=== PATIENT | male | born 1980 | race Caucasian/White ===

== ENCOUNTER 2017-07-11 02:13 | Emergency (ER) | payer OTHER ==
--- NOTE | 2017-07-11 02:15 | ER Report ---
History and Physical Time Seen By MD: 02:15 (PREET MURPHY MD) HPI/ROS CHIEF COMPLAINT: emergency detainment HISTORY OF PRESENT ILLNESS: This is a 37 year old male. [facility] He was emergency detained. He has been going through a lot of stress with family situations and financial. Reported to SO by family that he smashed out a window in his trailer. Was holding a piece of glass against his wrist threatening to hurt himself. Family had reported to the SO that he had made suicidal comments. The patient left the home on foot. It was reported that he tried to start his motorcycle, but then left of foot. The patient states that he was leaving because he was angry, but not suicidal. Was later approached by law enforcement after this. Has some shallow cuts on is forearm which he states happened when he broke the window. Denies current suicidal ideation. Has been drinking tonight, does not usually drink. He is upset about being here, and states that he cannot afford to miss work, he will be fired, and that they do not care if he is in the hospital or not. (PREET MURPHY MD) Allergies: Coded Allergies: No Known Drug Allergies (Unverified , 07/11/17) Home Meds Discontinued Reported Medications Ranitidine Hcl (ZANTAC) 150 Mg Tablet, 150 MG PO QDAY, TAB 07/11/17 Reviewed Nurses Notes: Yes (PRETE MURPHY MD) Constitutional Vital Sign - Last 24 Hours 07/11/17 07/11/17 02:15 08:05 Temp 98.3 Pulse 100 91 Resp 16 B/P (MAP) 159/99 151/92 (111) Pulse Ox 94 O2 Delivery Room Air (MADELINE ERICKSON MD) Physical Exam General Appearance: Alert, somewhat anxious, cooperative initially. Eyes: Pupils equal and round, reactive to light, extraocular movements are intact, no injection. ENT: Normal oral mucosa. Moist mucous membranes. Tympanic membranes are normal. Neck: Neck is supple and non tender. Respiratory: Chest is non tender, lungs are clear to auscultation. Cardiac: regular rate and rhythm Gastrointestinal: Abdomen is soft and non tender, no masses, bowel sounds normal. Musculoskeletal: Extremities have full range of motion. Skin: No rashes. Has shallow lacerations and abrasions on his forearms. DIFFERENTIAL DIAGNOSIS: After history and physical exam differential diagnosis was considered for a patient with self-injurious behavior tonight, report of suicidal ideation although he is not currently expressing suicidal ideation, and with alcohol intoxication ([facility]) Medical Decision Making Data Points Result Diagram: 07/11/17 0224 07/11/17 0224 Laboratory Hematology Test 07/11/17 02:10 07/11/17 02:24 Urine Color Straw Urine Clarity Clear Urine pH 5.0 pH (4.8-9.5) Urine Specific Doole 1.004 Urine Protein Negative mg/dL (NEGATIVE) Urine Glucose (UA) Negative mg/dL (NEGATIVE) Urine Ketones Negative mg/dL (NEGATIVE) Urine Blood Negative (NEGATIVE) Urine Nitrite Negative (NEGATIVE) Urine Bilirubin Negative (NEGATIVE) Urine Urobilinogen Negative mg/dL (0.2-1.9) Urine Leukocyte Esterase Negative (NEGATIVE) Urine RBC <1 /HPF (0-2/HPF) Urine WBC None /HPF (0-5/HPF) Urine Squamous Epithelial Cells Few /LPF (</=FEW) Urine Bacteria Negative /HPF (NONE-FEW) Urine Mucus None /HPF (NONE-FEW) Urine Opiates Screen Negative Urine Barbiturates Screen Negative Ur Tricyclic Antidepressants Screen Negative Urine Phencyclidine Screen Negative Urine Amphetamines Screen Negative Urine Benzodiazepines Screen Negative Urine Cocaine Screen Negative Urine Cannabinoids Screen Negative Red Blood Count 5.42 M/uL (4.00-5.60) Mean Corpuscular Volume 89.7 fL (80.0-96.0) Mean Corpuscular Hemoglobin 31.7 pg (26.0-33.0) Mean Corpuscular Hemoglobin Concent 35.3 g/dL (32.0-36.0) Red Cell Distribution Width 12.7 % (11.5-14.5) Mean Platelet Volume 10.1 fL (7.2-11.1) Neutrophils (%) (Auto) 62.6 % (39.4-72.5) Lymphocytes (%) (Auto) 26.3 % (17.6-49.6) Monocytes (%) (Auto) 8.6 % (4.1-12.4) Eosinophils (%) (Auto) 1.7 % (0.4-6.7) Basophils (%) (Auto) 0.8 % (0.3-1.4) Nucleated RBC Relative Count (auto) 0.1 /100WBC Neutrophils # (Auto) 7.4 K/uL (2.0-7.4) Lymphocytes # (Auto) 3.1 K/uL (1.3-3.6) Monocytes # (Auto) 1.0 K/uL (0.3-1.0) Eosinophils # (Auto) 0.2 K/uL (0.0-0.5) Basophils # (Auto) 0.1 K/uL (0.0-0.1) Nucleated RBC Absolute Count (auto) 0.01 K/uL Sodium Level 146 mmol/L (137-145) Potassium Level 4.0 mmol/L (3.5-5.0) Chloride Level 107 mmol/L (98-107) Carbon Dioxide Level 22 mmol/L (22-30) Blood Urea Nitrogen 13 mg/dl (9-21) Creatinine 1.00 mg/dl (0.66-1.25) Glomerular Filtration Rate Calc > 60.0 Random Glucose 104 mg/dl (75-110) Calcium Level 9.8 mg/dl (8.4-10.2) Magnesium Level 1.9 mg/dl (1.7-2.2) Total Bilirubin 0.3 mg/dl (0.2-1.3) Aspartate Amino Transf (AST/SGOT) 22 U/L (0-35) Alanine Aminotransferase (ALT/SGPT) 42 U/L (0-56) Alkaline Phosphatase 81 U/L (0-126) Total Protein 7.4 gm/dl (6.3-8.2) Albumin 4.4 g/dl (3.5-5.0) Salicylates Level < 10 mg/L Salicylate Last Dose Date unk Acetaminophen Level < 10 ug/ml Serum Alcohol 135 mg/dl Chemistry Test 07/11/17 02:10 07/11/17 02:24 Urine Color Straw Urine Clarity Clear Urine pH 5.0 pH (4.8-9.5) Urine Specific Doole 1.004 Urine Protein Negative mg/dL (NEGATIVE) Urine Glucose (UA) Negative mg/dL (NEGATIVE) Urine Ketones Negative mg/dL (NEGATIVE) Urine Blood Negative (NEGATIVE) Urine Nitrite Negative (NEGATIVE) Urine Bilirubin Negative (NEGATIVE) Urine Urobilinogen Negative mg/dL (0.2-1.9) Urine Leukocyte Esterase Negative (NEGATIVE) Urine RBC <1 /HPF (0-2/HPF) Urine WBC None /HPF (0-5/HPF) Urine Squamous Epithelial Cells Few /LPF (</=FEW) Urine Bacteria Negative /HPF (NONE-FEW) Urine Mucus None /HPF (NONE-FEW) Urine Opiates Screen Negative Urine Barbiturates Screen Negative Ur Tricyclic Antidepressants Screen Negative Urine Phencyclidine Screen Negative Urine Amphetamines Screen Negative Urine Benzodiazepines Screen Negative Urine Cocaine Screen Negative Urine Cannabinoids Screen Negative White Blood Count 11.8 k/uL (4.5-11.0) Red Blood Count 5.42 M/uL (4.00-5.60) Hemoglobin 17.2 g/dL (14.0-18.0) Hematocrit 48.7 % (42.0-52.0) Mean Corpuscular Volume 89.7 fL (80.0-96.0) Mean Corpuscular Hemoglobin 31.7 pg (26.0-33.0) Mean Corpuscular Hemoglobin Concent 35.3 g/dL (32.0-36.0) Red Cell Distribution Width 12.7 % (11.5-14.5) Platelet Count 217 K/uL (150-450) Mean Platelet Volume 10.1 fL (7.2-11.1) Neutrophils (%) (Auto) 62.6 % (39.4-72.5) Lymphocytes (%) (Auto) 26.3 % (17.6-49.6) Monocytes (%) (Auto) 8.6 % (4.1-12.4) Eosinophils (%) (Auto) 1.7 % (0.4-6.7) Basophils (%) (Auto) 0.8 % (0.3-1.4) Nucleated RBC Relative Count (auto) 0.1 /100WBC Neutrophils # (Auto) 7.4 K/uL (2.0-7.4) Lymphocytes # (Auto) 3.1 K/uL (1.3-3.6) Monocytes # (Auto) 1.0 K/uL (0.3-1.0) Eosinophils # (Auto) 0.2 K/uL (0.0-0.5) Basophils # (Auto) 0.1 K/uL (0.0-0.1) Nucleated RBC Absolute Count (auto) 0.01 K/uL Glomerular Filtration Rate Calc > 60.0 Calcium Level 9.8 mg/dl (8.4-10.2) Magnesium Level 1.9 mg/dl (1.7-2.2) Total Bilirubin 0.3 mg/dl (0.2-1.3) Aspartate Amino Transf (AST/SGOT) 22 U/L (0-35) Alanine Aminotransferase (ALT/SGPT) 42 U/L (0-56) Alkaline Phosphatase 81 U/L (0-126) Total Protein 7.4 gm/dl (6.3-8.2) Albumin 4.4 g/dl (3.5-5.0) Salicylates Level < 10 mg/L Salicylate Last Dose Date unk Acetaminophen Level < 10 ug/ml Serum Alcohol 135 mg/dl Toxicology Test 07/11/17 02:10 07/11/17 02:24 Urine Opiates Screen Negative Urine Barbiturates Screen Negative Ur Tricyclic Antidepressants Screen Negative Urine Phencyclidine Screen Negative Urine Amphetamines Screen Negative Urine Benzodiazepines Screen Negative Urine Cocaine Screen Negative Urine Cannabinoids Screen Negative Salicylates Level < 10 mg/L Salicylate Last Dose Date unk Acetaminophen Level < 10 ug/ml Serum Alcohol 135 mg/dl Urinalysis Test 07/11/17 02:10 Urine Color Straw Urine Clarity Clear Urine pH 5.0 pH (4.8-9.5) Urine Specific Doole 1.004 Urine Protein Negative mg/dL (NEGATIVE) Urine Glucose (UA) Negative mg/dL (NEGATIVE) Urine Ketones Negative mg/dL (NEGATIVE) Urine Blood Negative (NEGATIVE) Urine Nitrite Negative (NEGATIVE) Urine Bilirubin Negative (NEGATIVE) Urine Urobilinogen Negative mg/dL (0.2-1.9) Urine Leukocyte Esterase Negative (NEGATIVE) Urine RBC <1 /HPF (0-2/HPF) Urine WBC None /HPF (0-5/HPF) Urine Squamous Epithelial Cells Few /LPF (</=FEW) Urine Bacteria Negative /HPF (NONE-FEW) Urine Mucus None /HPF (NONE-FEW) (MADELINE ERICKSON MD) ED Course/Re-evaluation ED Course Labs show alcohol level of 135. Everything else is negative. I called and talked with Mery Pedroza, and let her know that based on the situation, I was upholding the fdc because of the conflicting information and potential dangerousness involved. He is also getting angry about being detained. After talking to him further he states that he is refusing to be detained because he has done nothing wrong and is not suicidal. Tried to explain to him that the current detainment is based on actions from earlier tonight and that if behavioral health feels that he can be released early, that is up to them, but will wait for their evaluation. He is demanding that they be called to come in now, and I let him know that was not going to happen and they would evaluate later this morning. We let him know that we understand him being upset and do not blame him for that, but that at this time, he is detained and that further evaluation with behavioral health will need to be done. Decision to Disposition Date: July 11, 2017 Decision to Disposition Time: 02:49 (PREET MURPHY MD) ED Course 07/11/2017 7:51:37 am I spoke with Mery Pedroza from behavioral medicine. She states that the patient will be required to come up to the behavioral medicine floor for evaluation. If they determine at that time the patient does not require a prolonged visit he will be discharged from behavioral medicine. At this time we will have crisis come down to have the patient go up to the floor for evaluation. If the patient is uncooperative we will escort him with the police (MADELINE ERICKSON MD) Depart Departure Latest Vital Signs Vital Signs Date Time Temp Pulse Resp B/P (MAP) Pulse Ox O2 Delivery O2 Flow Rate FiO2 07/11/17 08:05 91 151/92 (111) 07/11/17 02:15 98.3 16 94 Room Air (MADELINE ERICKSON MD) Impression: Primary Impression: Self-injurious behavior Additional Impression: Intoxication Condition: Condition Unchanged Disposition: XFER TO [facility] New Scripts No Active Prescriptions or Reported Meds Problem Qualifiers PREET MURPHY MD July 11, 2017 02:15 MADELINE ERICKSON MD July 11, 2017 07:53
[2017-07-11] MEDS ORDERED: RANI-366 PO (02:27)
--- NOTE | 2017-07-11 02:38 | BHS - Psychiatric Evaluation ---
ER - Title 25 MHE Evaluation Title 25 Evaluation Patient Detained By: Law Enforcement Referral Source: law enforcement, family, patient Date Patient Detained: July 11, 2017 Time Patient Detained: : Date Skilled Nursing Expires: July 14, 2017 Time Skilled Nursing Expires: :15 Legal Status: Police Hold: No Legal Status: Residence: [facility] Resident Assessment Data Provided By: Patient, Law Enforcement, Family Member(s) HPI/ROS: This is a 37 year old male. [facility] He was emergency detained. He has been going through a lot of stress with family situations and financial. Reported to SO by family that he smashed out a window in his trailer. Was holding a piece of glass against his wrist threatening to hurt himself. Family had reported to the SO that he had made suicidal comments. The patient left the home on foot. It was reported that he tried to start his motorcycle, but then left of foot. The patient states that he was leaving because he was angry, but not suicidal. Was later approached by law enforcement after this. Has some shallow cuts on is forearm which he states happened when he broke the window. Denies current suicidal ideation. Has been drinking tonight, does not usually drink. He is upset about being here, and states that he cannot afford to miss work, he will be fired, and that they do not care if he is in the hospital or not. Admit due to SI or Attempt: No Suicide Plan: No Plan Alcohol or Drugs Involved: Yes Current Intoxication Info: Had several beers and was intoxicated. States that he usually does not drink Mental Status Exam General Appearance: Cooperative, Polite, Good Interaction Speech: Clear, Normal Rate, Normal Volume, Normal Tone Mood: Other Affect: Anxious, Agitated Thought Process: Organized, Goal Directed Thought Content: No Suicidal Ideation, No Homicidal Ideation Sensorium: Other (intoxicated) Cognition: Alert & Oriented-Person, Alert & Oriented-Place, Alert & Oriented- Time, Jtbir-Xneyamli-Prluvlxhh Memory: Immediate, Recent, Remote Insight Judgment: Fair Sleep: Normal Current Risk & History Current Dangerous Risk Assessm: Self-Injurious Behaviors Past Dangerous Risk Assessm: Other Previous Suicide Attempt: No Previous Attempt Previous Psychiatric Illness: No Previous Psychiatric Treatment: No Risk Assessment & Disposition Evaluated Risk Assessment: Based on the activities ivonne, would recommend detainment be upheld for psychiatric evaluation. Difference in what was reported by Law Enforcement and family and what he is saying now. Also with the increased agitation, feel that further evaluation is needed. Impression: Primary Impression: Self-injurious behavior Additional Impression: Intoxication Meets Mental Illness Req.: Yes Meets Dangerousness Req.: Yes Emergency Skilled Nursing to be: Upheld Date of Decision: July 11, 2017 Time of Decision: 02:49 Patient is Medically Stable at: Yes Disposition: [facility] Problem Qualifiers PREET MURPHY MD July 11, 2017 02:38
[2017-07-11 02:48] LABS: PLATELET COUNT, AUTOMATED 217 K/uL (150-450)
[2017-07-11 08:05] VITALS: BP 151/92
== END 2017-07-11 08:18 ==
LOC: ER 02:30
DX: S51.812A Laceration without foreign body of left forearm, initial encounter (principal); S51.811A Laceration without foreign body of right forearm, initial encounter; F10.920 Alcohol use, unspecified with intoxication, uncomplicated
CPT/HCPCS: 36415; 80305; 80320; 80329; 81001; 82040; 82247; 82310; 82374; 82435; 82565; 82947; 83735; 84075; 84132; 84155; 84295; 84443; 84450; 84460; 84520; 85025; 99283

== ENCOUNTER 2017-07-11 08:11 | Inpatient (IN) | payer OTHER ==
[~2017-07-11] VITALS: Ht 180.3 cm; Wt 106.6 kg
[~2017-07-11 08:11] MED LIST: RANI-366 PO
[2017-07-11] MEDS ORDERED: ACETAMINOPHEN 325 MG TAB PO PRN (08:45)
[2017-07-11] MEDS ORDERED: MAG HYD/AL HYD/SIMETH 30ML UDC PO PRN (08:45)
[2017-07-11 08:50] VITALS: BP 142/90
[2017-07-11] MEDS ORDERED: MULTIVITAMINS PO SCH (09:00)
[2017-07-11] MEDS ORDERED: OLANZapine 10 MG VIAL IM ONLY PRN (09:05)
[2017-07-11] MEDS ORDERED: diphenhydrAMINE 50 MG/ML VIAL IM PRN ×2 (09:05→09:15)
[2017-07-11] MEDS ORDERED: LORazepam 2 MG/ML VIAL IM PRN (09:05)
[2017-07-11] MEDS ORDERED: WATER STERILE 10 ML VIAL IM ONLY PRN (09:05)
[2017-07-11] MEDS ORDERED: NICOTINE INH SYSTEM 10 MG/INH INH PRN (09:25)
[2017-07-11] MEDS ORDERED: NICOTINE CARTRIDGE 1 EA PO PRN (09:25)
[2017-07-11] MEDS ORDERED: NEOMYCIN/POLYMYX/BACITR 30 GM TP PRN (12:20)
[2017-07-11 14:35] VITALS: BP 162/90
--- NOTE | 2017-07-12 11:09 | HISTORY AND PHYSICAL ---
DATE OF ADMISSION: July 11, 2017 DATE OF DISCHARGE: July 11, 2017 PRESENTING PROBLEM, CHIEF COMPLAINT "Me punching the window brought me here. My stepson called police. I am not suicidal by any means. I probably have an anger problem, but that is it. Most of my stress comes from work." HISTORY OF PRESENT ILLNESS This patient is a 37-year-old male that presented to the emergency room with [facility], having been emergency detained. It was reported by his significant other that he smashed out a window in his trailer and was holding a piece of glass against his wrist, threatening to hurt himself. Patient was intoxicated at the time, and significant other also had reported that he made suicidal comments. Patient left the home on foot. He was reportedly trying to start his motorcycle, but he left on foot, leaving because he was angry, he stated, but not suicidal. Later approached by law enforcement. He had some shallow cuts on his right forearm from breaking the window. He denies suicidal ideation, reporting that he had been drinking, but usually does not drink. He was upset about being detained, reporting he could not afford to miss work and that he would be fired. He was kept in the emergency department overnight with law enforcement officers present, as reports that his anger escalated. Patient was eventually transferred in to the morning to the behavioral health unit for further evaluation and treatment. He denies previous inpatient psychiatric hospitalizations or mental health history. He is not on psychotropics. He reported that he had been drinking up to a 12 pack and four shots of liquor, normally does not drink, but a family argument ensued. He states that he became angry and upset after arguing with everyone. He does not recall all of the specifics, but punched a window in his fifth wheel. Some of the glass fell down and cut his right forearm. He stated "I am done with it", referencing wanting to end the situation, although states that his family interpreted it as a suicidal statement. His stepson called law enforcement. The stepson also has a history of his father committing suicidal last November. Patient was emergency detained by law enforcement, as stated above. At time of initial interview, which took place on July 11, 2017, approximately 9 a.m., patient is denying anxiety or depression. He is denying suicidal or homicidal ideation He reports that he does become anxious at times. He reports he does have an anger problem, rating his annoyance a 5 out of a 10. He reports that he sleeps good, obtains anywhere from 8 to 20 hours, depending on his work schedule. His appetite and energy level are sufficient. He denies any other psychiatric symptoms, denies history of gaurang or psychosis, denies auditory or visual hallucinations. Denies history of physical or emotional abuse while growing up. He reported work related stressors. It was felt after further review of his symptoms and his history, that he would be considered for discharge. A conference call took place between stepson and patient, where apologies were made and accepted. Patient is not felt to be a threat to himself or others, and is appropriate for discharge with ongoing outpatient management via [facility], which was agreed upon prior to discharge. MENTAL HEALTH HISTORY Patient denies history of suicidal attempts, denies history of previously taking psychotropics, denies history of previous inpatient psychiatric hospitalizations or individual or group outpatient therapy. FAMILY PSYCHIATRIC HISTORY Patient reports his mother "acts crazy". Older brother with alcohol use disorder. PAST MEDICAL HISTORY Patient denies history of hepatitis, seizures, head injuries. He reports he had chest tube placement as an , because his lungs were not mature. Other than that, medical history benign. ALLERGIES No known drug allergies. SOCIAL HISTORY Patient was born in [place], [place] and raised all over as his father traveled. He is unsure if his parents were at the time of his . He met his biological mother at age 27, raised primarily by his father. His father and brother currently worked for him. 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 He has two brothers and two sisters, good relationship with his older brother who works for him. Father lives in [place], [place]. He lives in [place] with his significant other and three children. He has been in the current relationship with his girlfriend since September,. He has two sons, and he has two daughters. His girlfriend has two sons and two daughters. He denies history of physical or emotional abuse. His highest grade of education was ninth grade. LEGAL HISTORY Patient reports a history of being in [facility] four to five times, charges including speeding, traffic violations and domestic violence 12 years ago, which was dropped to a reckless endangerment charge. He denies history of felonies or DUIs. His last [facility]cc was four years ago. OFFENDER/VICTIM ISSUES Patient again denies history of physical, emotional or sexual abuse. SUBSTANCE ABUSE HISTORY Patient reports that he rarely drinks. Alcohol has not been problematic in his life, but did become intoxicated prior to admission, including drinking a 12- pack and four shots of liquor. He has previously tried cannabis, but does not regularly or in the past have used illicit substances. PHYSICAL EXAMINATION Please see emergency room notes for physical exam. Vital signs at time of admission including temperature of 99.4, pulse of 77, respiratory rate 16, blood pressure 142/90, pulse oximetry 94% on room air. LABORATORY DATA Laboratory data including CBC within normal limits. White blood cell count slightly elevated 11.8. Chemistry panel within normal limits. Sodium slightly elevated 146. Thyroid stimulating hormone is pending. Urine screen within normal limits. Toxicology including salicylate, acetaminophen levels less than 10. Serum alcohol level 135. Urine screen negative for opiates, barbiturates , tricyclics, phencyclidine, amphetamines, benzodiazepine, cocaine and cannabinoids. MENTAL STATUS EXAMINATION GENERAL APPEARANCE, BEHAVIOR AND ATTITUDE: This patient is calm, cooperative at time of discharge interview. SPEECH: Regular rate, rhythm and volume. MOOD: Patient frustrated with admission. AFFECT: Mood congruent. THOUGHT PROCESSES: Logical, goal-directed. No loose associations or flight of ideas. THOUGHT CONTENT: Free of auditory or visual hallucinations, ideas of reference , thought broadcasting, delusions, obsessions, compulsions. Patient denying suicidal or homicidal ideation. SENSORIUM: Clear. COGNITION: Alert and oriented to person, place, time and situation. MEMORY: Immediate, recent and remote estimated intact. ESTIMATED INTELLIGENCE: Average based on interview. INSIGHT AND JUDGMENT: Considered improved and intact. Patient now agreeable to outpatient individual therapy with resources provided prior to discharge. 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 It was reported that he had made threats of self harm and suicide by a family member. His stepson became afraid and called PD. He was then brought to the emergency room for further evaluation and treatment. Patient was evaluated. He continued to work with individual therapist throughout the day, and it was felt appropriate that he could discharge with recommendation for outpatient services. He is to have follow up with [facility] as scheduled. Contact numbers will be provided prior to discharge. He is considered a minimal risk to himself or others. DIAGNOSIS PER DSM-V Adjustment disorder with mixed disturbance of emotions and conduct. Alcohol intoxication at time of admission. Problems related to ineffective coping mechanisms. RECOMMENDATIONS Patient was admitted to the unit with necessary precautions. Individual and group therapy was initiated. Medications were not recommended or initiated. It was recommended that patient could be released to home with outpatient services for individual therapy recommended. Patient was given the crisis line number and encouraged use should symptoms worsen. Patient was to abstain from alcohol and all illicit substances. Patient is competent and agreeable with the above discharge plan. He is to return to the emergency room for worsening symptoms, suicidal or homicidal ideation. OUMAR
== END 2017-07-11 15:45 | disposition home or self-care (01) | DRG 882 ==
LOC: BHS 08:11
PROVIDERS: ADMIT Nurse Practitioner Psychiatric/Mental Health; ATTEND Nurse Practitioner Psychiatric/Mental Health
DX: F43.25 Adjustment disorder with mixed disturbance of emotions and conduct (principal); F10.120 Alcohol abuse with intoxication, uncomplicated; Y90.6 Blood alcohol level of 120-199 mg/100 ml; Z81.8 Family history of other mental and behavioral disorders; Z56.6 Other physical and mental strain related to work